=== PATIENT | male | born 1980 | race Caucasian/White ===

== ENCOUNTER 2018-12-14 16:50 | Emergency (ER) | payer OTHER ==
[~2018-12-14] VITALS: Ht 180.3 cm; Wt 101.2 kg
--- NOTE | 2018-12-14 17:10 | NUR ---
PT HERE FOR NASAL CONGESTION AND INCREASED EAR DRAINAGE. PT DENIES RECENT EXPOSURE TO ILLNESS. PT DENIES CONSUMPTION OF BAD FOODS. PT REPROTS HE CANT TOLERATE THE "SINUS INFECTION ANYMORE".
[2018-12-14 17:28] VITALS: BP 172/106
--- NOTE | 2018-12-14 17:29 | NUR ---
PT HAVING ELEVATED BP, PT GIVEN BP EDUCATION BY ERIKA DISLA. PT AT THIS TIME NOT WANTING LABS OR MORE EXAMS.
--- NOTE | 2018-12-14 17:47 | NUR ---
Patient/Caregiver given discharge instructions and they have confirmed that they understand the instructions. Patient ambulatory with steady gait.
== END 2018-12-14 17:50 | disposition home or self-care (01) ==
LOC: ED 17:15
DX: J30.2 Other seasonal allergic rhinitis (principal); I10 Essential (primary) hypertension; F17.200 Nicotine dependence, unspecified, uncomplicated
CPT/HCPCS: 99283